=== PATIENT | female | born 1985 | race Caucasian/White ===

== ENCOUNTER → 2023-08-24 06:48 | Outpatient (REF) | payer OTHER, SELFPAY | LOC: HWRAD 06:48 | PROVIDERS: ATTENDING PHYSICIAN Specialist; FAMILY PHYSICIAN Family Medicine | DX: R22.9 Localized swelling, mass and lump, unspecified (principal) | CPT/HCPCS: 76604; 76705 ==

== ENCOUNTER → 2025-04-20 07:10 | Outpatient (REF) | payer OTHER, SELFPAY | LOC: WDC 07:10 | PROVIDERS: ATTENDING PHYSICIAN Obstetrics & Gynecology; FAMILY PHYSICIAN Family Medicine | DX: Z12.31 Encounter for screening mammogram for malignant neoplasm of breast (principal) | CPT/HCPCS: 77063; 77067 ==

== ENCOUNTER → 2025-07-16 06:40 | Outpatient (REF) | payer OTHER, SELFPAY | LOC: HWRAD 06:40 | PROVIDERS: ATTENDING PHYSICIAN Obstetrics & Gynecology; FAMILY PHYSICIAN Family Medicine | DX: E07.9 Disorder of thyroid, unspecified (principal) | CPT/HCPCS: 76536 ==